=== PATIENT | female | born 1940 | race Caucasian/White ===

== ENCOUNTER 2024-12-14 08:51 | Outpatient (REF) | payer MEDICARE, MEDICAID, SELFPAY ==
[2024-12-14 13:21] LABS: Hematocrit 31.2 % (37.0-47.0); Hemoglobin 10.7 g/dl (12.0-16.0); Imm Gran Abs Auto 0.00 X10*3/uL (0.00-0.03); Imm Gran Pct Auto 0.0 % (0.0-0.4); Lymphocytes Absolute Auto 1.9 X10*3/uL (1.2-4.9); Mean Corpuscular HGB Conc 34.3 g/dl (31.0-35.0); Mean Corpuscular Hemoglobin 34.0 pg (27.0-33.0); Mean Corpuscular Volume 99.0 fL (80.0-98.0); NRBC Abs Auto 0.000 X10*3/uL (0.0-0.012); NRBC Pct Auto 0.0 /100WBC (0.0-0.2); Red Blood Count 3.15 X10*6/uL (4.20-5.50); White Blood Count 4.4 X10*3/uL (4.8-10.8)
[2024-12-14 13:24] LABS: Platelet Count 80 X10*3/uL (160-400)
[2024-12-14 13:44] LABS: Alanine Aminotransferase 29 U/L (0-31); Albumin Level 2.6 g/dL (3.5-5.0); Alkaline Phosphatase 279 U/L (39-117); Anion Gap 9 (12-20); Aspartate Amino Transferase 71 U/L (5-31); Blood Urea Nitrogen 17 mg/dL (9-16); Calcium 9.2 mg/dL (8.4-10.2); Carbon Dioxide 27 mmol/L (22-29); Chloride 107 mmol/L (96-108); Cholesterol 97 mg/dL (<200); Estimated Glomerular Filt Rate > 60; HDL Cholesterol 37 mg/dL (>40); Magnesium 1.7 mg/dL (1.6-2.6); Potassium 4.3 mmol/L (3.3-5.1); Sodium 139 mmol/L (135-145); Total Protein 7.4 g/dL (6.5-8.0); Triglycerides 40 mg/dL (<150)
[2024-12-14 14:08] LABS: Folate 9.7 ng/mL (> or = 4.0); Vitamin B12 1940 pg/mL (200-900)
[2024-12-14 15:31] LABS: MANUAL DIFF FLAG NO
[2024-12-14 15:50] LABS: Free T4 (Free Thyroxine) 1.12 ng/dL (0.71-1.85)
[2024-12-15 08:37] LABS: HBS Num1 0.00 mIU/mL (0-7.99); HBsAGNum1 0.40 S/CO (0.00-0.99); HIV Num 1 0.07 S/CO (0.00-0.99); Hepatitis B Surface Antigen Negative (Negative); ~HepC Num1 0.47 S/CO (0.00-0.79); ~Hepatitis B Surface Antibody NONREACTIVE (Nonreactive); ~Hepatitis C Antibody Nonreactive (Nonreactive)
[2024-12-15 08:55] LABS: Syphilis Screen Nonreactive (Nonreactive)
[2024-12-18 17:34] LABS: VITAMIN D (1,25 OH) D3 15 pg/mL; Vit D (1,25-Dihydroxy) Total 15 pg/mL (18-72); Vitamin D (1,25 OH) D2 <8 pg/mL
== END 2024-12-14 08:52 | disposition home or self-care (01) ==
LOC: HO.HKASLDS 08:51
PROVIDERS: Visit Provider Student in an Organized Health Care Education/Training Program
DX: Z76.89 Persons encountering health services in other specified circumstances (principal); Z01.89 Encounter for other specified special examinations; Z13.9 Encounter for screening, unspecified; Z11.4 Encounter for screening for human immunodeficiency virus [HIV]; Z13.31 Encounter for screening for depression; Z13.220 Encounter for screening for lipoid disorders; Z71.9 Counseling, unspecified; F43.21 Adjustment disorder with depressed mood; I10 Essential (primary) hypertension; R26.9 Unspecified abnormalities of gait and mobility; R60.0 Localized edema; I87.2 Venous insufficiency (chronic) (peripheral); L60.2 Onychogryphosis; M79.604 Pain in right leg; M79.605 Pain in left leg; Z79.899 Other long term (current) drug therapy
CPT/HCPCS: 36415; 80053; 80061; 82607; 82652; 82746; 83036; 83735; 84439; 84443; 85025; 86706; 86780; 86803; 87340; 87389; 96127

== ENCOUNTER 2024-12-14 08:51 | Outpatient (AMB) | payer OTHER, MEDICAID, SELFPAY ==
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
[2024-12-14 09:13] VITALS: BP 152/72; PULSE 109; RESP 16; TEMP 36.3; O2SAT 97; BMI 24.7
--- OUTSIDE RECORDS SUMMARY | 2024-12-14 09:59 | XMS_ITS | Clinical Summary ---
Author Organization [facility] Address [address] [place] [address] Phone Care Team Providers Care Account Classification Clerk Name Role Phone Physician, Pcp Unknown Primary Care Provider Heidi vailable Allergies No known active allergies Encounters Date Type Department Care Team Description 11/05/2024 1:05 PM EDT - 11/05/2024 5:40 PM EDT Emergency [facility] Emergency [address] [place] [address] Maxwell Garcia MD Venous stasis dermatitis of both lower extremities (Primary Dx) Discharge Disposition: Home or Self Care from Last 3 Months Medical History Medical History Date Comments Hypertension Social History Tobacco Use Types Packs/Day Years Used Date Smoking Tobacco: Never Smokeless Tobacco: Never Tobacco Cessation:Counseling Given: Not Answered Comments Unknown Sex and Gender Information Value Date Recorded Sex Assigned at Not on file Legal Sex Female 12:44 PM EDT Gender Identity Not on file Sexual Orientation Not on file Obstetrics History Last Filed Vital Signs Vital Sign Reading Time Taken Comments Blood Pressure 147/69 11/05/2024 4:00 PM EDT Pulse 97 11/05/2024 4:00 PM EDT Temperature 36.7 C (98 F) 11/05/2024 12:55 PM EDT Respiratory Rate 17 11/05/2024 4:00 PM EDT Oxygen Saturation 97% 11/05/2024 4:00 PM EDT Inhaled Oxygen Concentration - - Weight 59.4 kg (131 lb) 11/05/2024 12:55 PM EDT Height 152.4 cm (5') 11/05/2024 12:55 PM EDT Body Mass Index 25.58 11/05/2024 12:55 PM EDT Plan of Treatment Health Maintenance Due Date Last Done Comments DTaP,Tdap,and Td Vaccines (1 - Tdap) 02/06/1959 Pneumococcal Vaccine: 50+ Ye ars (1 of 1 - PCV) 02/06/1990 Zoster Vaccines (1 of 2) 02/06/1990 RSV Immunization Adult Patie nts (1 - 1-dose 75+ series) 02/06/2015 Depression Screening 04/05/2024 Falls Risk Assessment 11/05/2024 Medicare Annual Wellness Visit 11/05/2024 Osteoporosis Screening (Bone Density Screening) 11/05/2024 Social Influencers of Health Screening 11/05/2024 COVID-19 Vaccine (1 - 2023-2 5 season) 2024 Influenza Vaccine (#1) 2024 HIB Vaccines Aged Out No longer eligi ble based on patient's age to complete this topic HPV Vaccines Aged Out No longer eligi ble based on patient's age to complete this topic Hepatitis A Vaccines Aged Out No long er eligible based on patient's age to complete this topic Hepatitis B Vaccines Aged Out No long er eligible based on patient's age to complete this topic IPV Vaccines Aged Out No longer eligi ble based on patient's age to complete this topic MMR Vaccines Aged Out No longer eligi ble based on patient's age to complete this topic Meningococcal ACWY Vaccine Aged Out N o longer eligible based on patient's age to complete this topic Meningococcal B Vaccine Aged Out No l onger eligible based on patient's age to complete this topic RSV Immunization Patients Un randi 20 months Aged Out No longer eligible b ased on patient's age to complete this topic Varicella Vaccines Aged Out No longer eligible based on patient's age to complete this topic Procedures Procedure Name Priority Date/Time Associated Diagnosis Comments ECG ANNOTATED 11/06/2024 LT BLUE - NA CITRATE Routine 11/05/2024 3:17 PM EDT EXTRA TUBES Routine 11/05/2024 3:17 PM EDT COMPREHENSIVE METABOLIC PANEL STAT 11/05/2024 3:17 PM EDT XR CHEST 1 VIEW STAT 11/05/2024 2:33 PM EDT CBC WITH AUTO DIFFERENTIAL STAT 11/05/2024 1:44 PM EDT ACTIVATED PARTIAL THROMBOPLASTIN TIME STAT 11/05/2024 1:44 PM EDT PROTHROMBIN TIME WITH INR STAT 11/05/2024 1:44 PM EDT CBC AND DIFFERENTIAL STAT 11/05/2024 1:44 PM EDT B-TYPE NATRIURETIC PEPTIDE STAT 11/05/2024 1:44 PM EDT ECG 12-LEAD STAT 11/05/2024 1:35 PM EDT from Last 3 Months Results * ECG-Annotated (11/06/2024) us Provider Onbase ECG ORDERABLES Final Result * Light blue tube (11/05/2024 3:17 PM EDT) [facility] Extra Tube Hold for add-ons. 11/05/2024 5:01 PM EDT [facility] Comment:Auto resulted. Blood Venous blood specimen / Unknown 11/05/2024 3:17 PM EDT 11/05/2024 3:19 PM EDT Maxwell Garcia MD LAB BLOOD ORDERABLES Final Resul t [facility] [address] [place] [address], [place] [phone] * (ABNORMAL) Comprehensive metabolic panel (11/05/2024 3:17 PM EDT) [facility] Sodium 140 133 - 145 mmol/L LAB CHEMISTRY METHOD 11/05/2024 4:34 PM EDT [facility] Potassium 4.8 3.5 - 5.5 mmol/L LAB CHEMISTRY METHOD 11/05/2024 4:34 PM EDT [facility] Chloride 110 96 - 110 mmol/L LAB CHEMISTRY METHOD 11/05/2024 4:34 PM [facility] CO2 28 21 - 32 mmol/L LAB CHEMISTRY METHOD 11/05/2024 4:34 PM [facility] Anion Gap 2(L) 3 - 11 LAB CHEMISTRY METHOD 11/05/2024 4:34 PM [facility] Glucose 105(H) 70 - 100 mg/dL LAB CHEMISTRY METHOD 11/05/2024 4:34 PM [facility] BUN 20 5 - 25 mg/dL LAB CHEMISTRY METHOD 11/05/2024 4:34 PM [facility] Creatinine 0.40(L) 0.50 - 1.10 mg/dL LAB CHEMISTRY METHOD 11/05/2024 4:34 PM [facility] eGFR 98 >=60 mL/min/1. 73m2 LAB CHEMISTRY METHOD 11/05/2024 4:34 PM [facility] Comment:Calculation based on the Chronic Kidney Disease Epidemiology Collaboration (CKD-EPI) equation refit without adjustment for race. BUN/Creatinine Ratio 50.0 LAB CHEMISTRY METHOD 11/05/2024 4:34 PM [facility] Calcium 9.7 8.5 - 10.5 mg/dL LAB CHEMISTRY METHOD 11/05/2024 4:34 PM [facility] AST (SGOT) 52(H) 10 - 42 unit/L LAB CHEMISTRY METHOD 11/05/2024 4:34 PM [facility] ALT (SGPT) 35 10 - 60 unit/L LAB CHEMISTRY METHOD 11/05/2024 4:34 PM [facility] Alkaline Phosphatase 250(H) 42 - 121 unit/L LAB CHEMISTRY METHOD 11/05/2024 4:34 PM [facility] Total Protein 6.7 6.0 - 8.0 g/dL LAB CHEMISTRY METHOD 11/05/2024 4:34 PM EDT [facility] Albumin 2.3(L) 3.2 - 5.0 g/dL LAB CHEMISTRY METHOD 11/05/2024 4:34 PM EDT [facility] Total Bilirubin 1.1 0.0 - 1.4 mg/dL LAB CHEMISTRY METHOD 11/05/2024 4:34 PM EDT [facility] Blood Venous blood specimen / Unknown Venipuncture / Unknown 11/05/2024 3:17 PM EDT 11/05/2024 3:19 PM EDT us Maxwell Garcia MD LAB BLOOD ORDERABLES Final Resul t [facility] [address] [place] [address], [place] [phone] * XR Chest 1 View (11/05/2024 2:33 PM EDT) Anatomical Region Laterality Modality Body Radiographic Annia ging 11/05/2024 3:19 PM EDT Impressions 11/05/2024 3:19 PM EDT FINDINGS/IMPRESSION: No pneumonia or pulmonary edema. No pleural effusion or pneumothorax. Cardiac silhouette is mildly enlarged. Degenerative changes seen throughout the bones. -------- FINAL REPORT -------- Dictated By: GLO MALIK Dictated Date: 11/05/2024 15:19 ET Assigned Physician: GLO MALIK Reviewed and Electronically Signed By: GLO MALIK Signed Date: 11/05/2024 15:19 ET Workstation ID: [id number] Transcribed By: Self Edit Transcribed Date: 11/05/2024 15:19 ET Narrative 11/05/2024 3:19 PM EDT XR CHEST 1 VIEW INDICATION: Swelling TECHNIQUE: XR CHEST 1 VIEW COMPARISON: No priors available. Procedure Note Glo Malik MD - 11/05/2024 XR CHEST 1 VIEW INDICATION: Swelling TECHNIQUE: XR CHEST 1 VIEW COMPARISON: No priors available. IMPRESSION: FINDINGS/IMPRESSION: No pneumonia or pulmonary edema. No pleural effusionor pneumothorax. Cardiac silhouette is mildly enlarged. Degenerativechanges seen throughout the bones. -------- FINAL REPORT -------- Dictated By: GLO MALIK Dictated Date: 11/05/2024 15:19 ET Assigned Physician: GLO MALIK Reviewed and Electronically Signed By: GLO MALIK Signed Date: 11/05/2024 15:19 ET Workstation ID: [id number] Transcribed By: Self Edit Transcribed Date: 11/05/2024 15:19 ET Maxwell Garcia MD IMG XR PROCEDURES Final Result * (ABNORMAL) CBC auto differential (11/05/2024 1:44 PM EDT) WBC 4.5(L) 4.8 - 10.8 K/mcL LAB HEMETOLOGY [facility] RBC 3.10(L) 3.80 - 4.80 M/mcL LAB HEMETOLOGY METHOD [facility]/05[facility]24 [facility] Hemoglobin 10.6(L) 11.5 - 16.0 g/dL LAB HEMETOLOGY METHOD 11/05/2024 3:02 PM [facility] Hematocrit 31.8(L) 35.0 - 47.0 % LAB HEMETOLOGY METHOD 11/05/2024 3:[facility] MCV 102.9(H) 79.0 - 98.0 FL LAB HEMETOLOGY METHOD 11/05/2024 3:[facility] MCH 34.3(H) 27.0 - 32.0 pcg LAB HEMETOLOGY METHOD 11/05/2024 3:02 PM [facility] MCHC 33.3 32.0 - 37.0 g/dL LAB HEMETOLOGY METHOD 11/05/2024 3:02 PM [facility] RDW 14.2 11.0 - 15.0 % LAB HEMETOLOGY METHOD 11/05/2024 3:02 PM [facility] Platelets 58(L) 130 - 400 K/mcL LAB HEMETOLOGY METHOD 11/05/2024 3:02 PM [facility] MPV 12.9(H) 7.0 - 11.0 FL LAB HEMETOLOGY METHOD 11/05/2024 3:02 PM [facility] NRBC 0.0 <1.0 % LAB HEMETOLOGY METHOD 11/05/2024 3:02 PM [facility] NRBC Absolute 0.00 <0.10 K/mcL LAB HEMETOLOGY METHOD 11/05/2024 3:02 PM [facility] Neutrophils Relative 39.9 % LAB HEMETOLOGY METHOD 11/05/2024 3:02 PM [facility] Lymphocytes Relative 39.0 % LAB HEMETOLOGY METHOD 11/05/2024 3:02 PM [facility] Monocytes Relative 16.0 % LAB HEMETOLOGY METHOD 11/05/2024 3:02 PM [facility] Eosinophils Relative 4.7 % LAB HEMETOLOGY METHOD 11/05/2024 3:02 PM [facility] Basophils Relative 0.2 % LAB HEMETOLOGY METHOD 11/05/2024 3:02 PM [facility] Immature Granulocytes Relative 0.2 % LAB HEMETOLOGY METHOD 11/05/2024 3:02 PM [facility] Neutrophils Absolute 1.80 1.50 - 7.00 K/mcL LAB HEMETOLOGY METHOD 11/05/2024 3:02 PM [facility] Lymphocytes Absolute 1.76 1.00 - 5.00 K/mcL LAB HEMETOLOGY METHOD 11/05/2024 3:02 PM [facility] Monocytes Absolute 0.72 0.20 - 1.00 K/mcL LAB HEMETOLOGY METHOD 11/05/2024 3:02 PM EDT [facility] Eosinophils Absolute 0.21 0.00 - 0.50 K/[facility] HEMETOLOGY METHOD 11/05/2024 3:02 PM EDT [facility] Basophils Absolute 0.01 0.00 - 0.20 K/[facility] HEMETOLOGY METHOD 11/05/2024 3:02 PM EDT [facility] Immature Granulocytes Absolute 0.01 0.00 - 0.03 K/[facility] HEMETOLOGY METHOD 11/05/2024 3:02 PM EDT [facility] Blood Venous blood specimen / Unknown Venipuncture / Unknown 11/05/2024 1:44 PM EDT 11/05/2024 2:17 PM EDT us Maxwell Garcia MD LAB BLOOD ORDERABLES Final Resul t Performing Organization Address City/[facility]/ZIP Co de Phone Number [facility] [address] [place] [address], [place] [phone] * APTT (11/05/2024 1:44 PM EDT) [facility] aPTT 33.7 24.1 - 39.3 sec LAB COAGULATION METHOD 11/05/2024 2:39 PM EDT [facility] Blood Venous blood specimen / Unknown Venipuncture / Unknown 11/05/2024 1:44 PM EDT 11/05/2024 2:17 PM EDT us Maxwell Garcia MD LAB BLOOD ORDERABLES Final Resul t [facility] [address] [place] [address], [place] [phone] * (ABNORMAL) Protime-INR (11/05/2024 1:44 PM EDT) [facility] Protime 16.0(H) 10.6 - 13.9 sec LAB COAGULATION METHOD 11/05/2024 2:39 PM EDT [facility] INR 1.3 LAB COAGULATION METHOD 11/05/2024 2:39 PM EDT [facility] Blood Venous blood specimen / Unknown Venipuncture / Unknown 11/05/2024 1:44 PM EDT 11/05/2024 2:17 PM EDT us Maxwell Garcia MD LAB BLOOD ORDERABLES Final Resul t Performing Organization Address [facility]/ZIP Co de Phone Number [facility] [address] [place] [address], [place] [phone] * B-type natriuretic peptide (11/05/2024 1:44 PM EDT) [facility] BNP 69 <=100 pcg/mL LAB CHEMISTRY METHOD 11/05/2024 2:54 PM EDT [facility] Blood Venous blood specimen / Unknown Venipuncture / Unknown 11/05/2024 1:44 PM EDT 11/05/2024 2:17 PM EDT us Maxwell Garcia MD LAB BLOOD ORDERABLES Final Resul t Performing Organization Address City/[facility]/ZIP Co de Phone Number [facility] [address] [place] [address], [place] [phone] * ECG 12 lead (11/05/2024 1:35 PM EDT) [facility] Ventricular Rate ECG 96 BPM GEMUSE Atrial Rate 96 BPM GEMUSE P-R Interval 240 ms GEMUSE QRS Duration 92 ms GEMUSE Q-T Interval 338 ms GEMUSE QTc 427 ms GEMUSE P Wave [place] 74 degrees GEMUSE R [place] -8 degrees GEMUSE T [place] 50 degrees GEMUSE ECG Interpretation Sinus rhythm with 1st degree A-V block Otherwise normal ECG No previous ECGs available Confirmed by LIBRA MAXWELL ([id number]) on 11/05/2024 9:49:49 PM GEMUSE 11/05/2024 1:35 PM EDT 11/05/2024 9:49 PM EDT us Maxwell Garcia MD ECG ORDERABLES Final Result GEMUSE from Last [address] [place] [address] MEDICA[place] - [place] [employer] MEDICARE Advance Directives Documents on File Type Date Recorded Patient Communication And Outreach Manager Expl anation Power of Electric Frying Pan Repairer 11/05/2024 2:05 PM HEALTH CARE PROXY Care Teams Account Classification Clerk Relationship Specialty Start Date End Date Physician, Pcp Unknown PCP - General 11/05/24
== END 2024-12-14 10:06 | disposition home or self-care (01) ==
PROVIDERS: PCP Student in an Organized Health Care Education/Training Program; Visit Provider Student in an Organized Health Care Education/Training Program
DX: Z13.31 Encounter for screening for depression (principal); I10 Essential (primary) hypertension; R26.9 Unspecified abnormalities of gait and mobility; R60.0 Localized edema; I87.2 Venous insufficiency (chronic) (peripheral); L60.2 Onychogryphosis; M79.604 Pain in right leg; M79.605 Pain in left leg

== ENCOUNTER 2024-12-21 08:20 | Outpatient (AMB) | payer MEDICARE, MEDICAID, SELFPAY ==
--- NOTE | 2024-12-21 08:24 | MHC.OFFVIS ---
Vital Signs 12/21/24 08:33 Height 5 ft Weight 126 lb BMI 24.6 Intake Visit Reasons: New Pt- Onychogryphosis Intake Note: jeniffer is an 84 year old female who presents today as a new patient for an evaluation of her bilateral Onychogryphosis. Patient reports no pain in her feet at this time. She notices her toe nails are thick and yellow and is interested in getting them trimmed. Allergies No Known Allergies Allergy (Verified 12/21/24 08:35) Medication List - Last Reconciled 12/21/24 by Rand Pedroza DPM [3 point cane As directed] furosemide 40 mg PO BID losartan 50 mg PO DAILY [portable toilet As directed] [rollator As directed] [shower bar As directed] [shower chair As directed] silver sulfadiazine 1% (Silvadene) 1 appl topical DAILY HPI Comments Details: The patient is an 84-year-old female with a past medical history as seen below presents today for thickened, elongated, and dystrophic toenails x10 and bilateral lower extremity edema with changes to the skin. Patient was accompanied by her son who provided Maori translation and the history. The edema has been recurrent for the past five years, initially managed in [place] with the assistance of an in-home nurse who applied ointment and compression bandages every other day. The condition improved with these interventions but worsened when the services stopped, particularly after relocating to [place]. Currently, the patient's son manages the edema by cleaning the affected area, applying body lotion, and wrapping it with an nick bandage and compression stockings. The patient has a scheduled appointment with a vascular specialist in February to address the underlying venous insufficiency contributing to the edema. The patient also has a history of hypertension and asthma, with recent episodes of shortness of breath and fatigue, particularly when performing minimal activities such as walking to the bathroom. She previously used a nebulizer for asthma management, which is currently unavailable, necessitating a new prescription (in communication with her PCP). Patient denies any other pedal concerns. She denies any current nausea, vomiting, fever, or chills. [facility] Medical History (Updated 12/21/24 @ 10:05 by Rand Pedroza DPM) Nail dystrophy Onychomycosis Venous stasis dermatitis of both lower extremities Hypertension Asthma Peripheral vascular disease Venous stasis Pain, lower extremity Family History (Updated 12/14/24 @ 08:57 by Mitali Burroughs MA) Father No problems noted. Mother No problems noted. Social History (Updated 12/14/24 @ 08:58 by Mitali Burroughs MA) Housing: Apartment Alcohol intake: current Alcohol intake frequency: does not drink Patient Tobacco Use Status: Never used Tobacco service: No Current occupational status: retired Cognitive needs: Yes (wheelchair ) Hearing needs: No Vision needs: No Review of Systems Const Details: - Cardiovascular: Reports peripheral edema B/L. - Respiratory: Reports shortness of breath and fatigue, denies cough and fever. - Musculoskeletal: Reports pre-hyperkeratotic lesions, thickened and elongated toenails - Derm: Reports venous stasis dermatitis. All systems reviewed & are unremarkable except as noted in HPI and below Physical Exam Vital Signs: BMI result Body Mass Index 24.6 Extrem Other: B/L LE Focused Physical Exam: Derm: Mild erythema and discoloration noted to the legs and foot with cobblestone texture appearance of the skin bilaterally. Toenails 1 through 10 noted to be elongated, dystrophic, and discolored with subungual debris. No open wounds or lesions noted. No drainage or purulence noted. 2 pre-hyperkeratotic lesions noted to the plantar aspect of the right foot in the area of the 2nd through 4th metatarsal heads. Vasc: DP pulses palpable and PT pulses nonpalpable. Capillary refill time less than 3 seconds. Temperature gradient warm to warm. Significant nonpitting edema noted bilaterally with induration. Pedal hair absent. Neuro: Protective sensations grossly intact. MSK: No pain on palpation to the lower extremities. Mild pain with lifting of the legs. Pes planus foot type. Range of motion of the ankle within normal limits. Range of motion of the forefoot within normal limits. Office Procedures AMB Debridement/Avulsion Podia Details: Debrided toenails X 10 using a nail Nipper. 10043-[id number] of Nail 6+ Procedure code (CPT) selection complete AMB Podiatry Dressing Details of Procedure: Applied Silvadene cream to bilateral lower extremities. Applied multilayer compression dressing to bilateral lower extremities. 06551 - Multi-layer compressive dressing Procedure code (CPT) selection complete Office Meds silver sulfadiazine 1 % topical cream Performing Provider: Rand Pedroza DPM Performing Location: [facility] [place] [facility] Administered by: Rand Pedroza DPM on 12/21/24 09:54 Dose Route Admin Location Dispensed Lot Number Expiration Date [facility] Nutritional Assistant 1 appl topical 25 g [id number] [facility] Results Reviewed Results Reviewed: Reviewed patient's previous visit with her PCP. Assessment & Plan Assessment & Plan (1) Pain, lower extremity: Code(s): M79.606 - Pain in leg, unspecified Category: Medical Qualifiers: Laterality: bilateral Qualified Code(s): M79.604 - Pain in right leg; M79.605 - Pain in left leg (2) Venous stasis: Code(s): I87.8 - Other specified disorders of veins Category: Medical (3) Peripheral vascular disease: Code(s): I73.9 - Peripheral vascular disease, unspecified Category: Medical (4) Asthma: Code(s): J45.909 - Unspecified asthma, uncomplicated Category: Medical (5) Hypertension: Code(s): I10 - Essential (primary) hypertension Category: Medical (6) Venous stasis dermatitis of both lower extremities: Code(s): I87.2 - Venous insufficiency (chronic) (peripheral) Category: Medical (7) Onychomycosis: Code(s): B35.1 - Tinea unguium Category: Medical (8) Nail dystrophy: Code(s): L60.3 - Nail dystrophy Category: Medical Plan Patient was informed and verbally consented to the use of an ambient scribe for clinic note documentation during this visit. Discussed diagnoses of peripheral edema, venous stasis dermatitis, and onychomycosis with the patient and her son. During the visit, I discussed the importance of managing peripheral edema through regular cleaning, application of Silvadene cream , and compression bandaging including compression stockings. I emphasized the need for the upcoming vascular consultation to address potential venous insufficiency. We also talked about the patient's asthma management, highlighting the necessity of obtaining a new nebulizer and medication per her PCP. I reassured the patient about monitoring her hyperkeratotic lesions and advised her to report any pain or changes. 1. Peripheral Edema - Prescribed patient with Silvadene cream. - Applied Silvadene cream and a multilayer compression to B/L lower extremities. - Continue current management with cleaning, application of Silvadene cream application, and compression bandaging. Continue to wear compression stockings. - Follow up with vascular specialist to evaluate and manage venous insufficiency. 2. Onychomycosis - Debrided toenails times 10 using a nail Nipper. Patient is to follow-up in 9 weeks for routine nail care and management of venous stasis dermatitis. Orders: Orders AMB Podiatry Dressing Today I73.9 - Peripheral vascular disease, unspecified, I87.2 - Venous insufficiency (chronic) (peripheral), I87.8 - Other specified disorders of veins, M79.604 - Pain in right leg, M79.605 - Pain in left leg AMB Silvadene Topical Application Today I73.9 - Peripheral vascular disease, unspecified, I87.2 - Venous insufficiency (chronic) (peripheral), I87.8 - Other specified disorders of veins AMB Debridement/Avulsion Podiatry Today B35.1 - Tinea unguium, I73.9 - Peripheral vascular disease, unspecified, I87.8 - Other specified disorders of veins, L60.3 - Nail dystrophy Medications: New silver sulfadiazine 1% (Silvadene) apply a 1.5 mm thickness 1 appl topical DAILY 25 grams 2RF Lower extremity Vasculitis/ venous stasis I73.9 - Peripheral vascular disease, unspecified, I87.8 - Other specified disorders of veins, M79.604 - Pain in right leg, M79.605 - Pain in left leg Coding Level of Care Code New Pt Level 4 (94559) Diagnoses Pain in both lower extremities M79.604; M79.605 Laterality: bilateral Venous stasis I87.8 Peripheral vascular disease I73.9 Asthma J45.909 Hypertension I10 Venous stasis dermatitis of both lower extremities I87.2 Onychomycosis B35.1 Nail dystrophy L60.3 CPT Codes Skin Debridement - CPT: 40361-Dvgzcxoudfy of Nail 6+ ([id number]) Podiatry Dressing - CPT: 69313 - Multi-layer compressive dressing ([id number]) Time Spent (min) 60
[2024-12-21 08:33] VITALS: BMI 24.6
--- OUTSIDE RECORDS SUMMARY | 2024-12-21 09:20 | XMS_ITS | Clinical Summary ---
Author Organization [facility] Address [address] [place] [address] Phone Care Team Providers Care Radiology Special Procedure Tech Name Role Phone Physician, Pcp Unknown Primary Care Provider Heidi vailable Allergies No known active allergies Encounters Date Type Department Care Team Description 11/05/2024 1:05 PM EDT - 11/05/2024 5:40 PM EDT Emergency [facility] Emergency [address] [place] [address] Maxwell Garcia MD Venous stasis [...] Light blue tube (11/05/2024 3:17 PM EDT) [facility] Extra Tube Hold for add-ons. 11/05/2024 5:01 PM EDT [facility] Comment:Auto resulted. Blood Venous blood specimen / Unknown 11/05/2024 3:17 PM EDT 11/05/2024 3:19 PM EDT Maxwell Garcia MD LAB BLOOD ORDERABLES Final Resul t [facility] [address] [place] [address], [place] [phone] * (ABNORMAL) Comprehensive metabolic panel (11/05/2024 3:17 PM EDT) [facility] Sodium 140 133 - 145 mmol/L LAB CHEMISTRY METHOD 11/05/2024 4:34 PM EDT [facility] Potassium 4.8 3.5 - 5.5 mmol/L LAB CHEMISTRY METHOD 11/05/2024 4:34 PM EDT [facility] Chloride 110 96 - 110 mmol/L LAB CHEMISTRY METHOD 11/05/2024 4:34 PM [facility] CO2 28 21 - 32 mmol/L LAB CHEMISTRY METHOD 11/05/2024 4:34 PM [facility] Anion Gap 2(L) 3 - 11 LAB CHEMISTRY METHOD 11/05/2024 4:34 PM [facility] Glucose 105(H) 70 - 100 mg/dL LAB CHEMISTRY METHOD 11/05/2024 4:34 PM [facility] BUN 20 5 - 25 mg/dL LAB CHEMISTRY METHOD 11/05/2024 4:34 PM [facility] Creatinine 0.40(L) 0.50 - 1.10 mg/dL LAB CHEMISTRY METHOD 11/05/2024 4:34 PM [facility] eGFR 98 >=60 mL/min/1. 73m2 LAB CHEMISTRY METHOD 11/05/2024 4:34 PM [facility] Comment:Calculation based on the Chronic Kidney Disease Epidemiology Collaboration (CKD-EPI) equation refit without adjustment for race. BUN/Creatinine Ratio 50.0 LAB CHEMISTRY METHOD 11/05/2024 4:34 PM [facility] Calcium 9.7 8.5 - 10.5 mg/dL LAB CHEMISTRY METHOD 11/05/2024 4:34 PM [facility] AST (SGOT) 52(H) 10 - 42 unit/L LAB CHEMISTRY METHOD 11/05/2024 4:34 PM [facility] ALT (SGPT) 35 10 - 60 unit/L LAB CHEMISTRY METHOD 11/05/2024 4:34 PM [facility] Alkaline Phosphatase 250(H) 42 - 121 unit/L LAB CHEMISTRY METHOD 11/05/2024 4:34 PM [facility] Total Protein 6.7 6.0 - 8.0 g/dL LAB CHEMISTRY METHOD 11/05/2024 4:34 PM EDT [facility] Albumin 2.3(L) 3.2 - 5.0 g/dL LAB CHEMISTRY METHOD 11/05/2024 4:34 PM EDT [facility] Total Bilirubin 1.1 0.0 - 1.4 mg/dL LAB CHEMISTRY METHOD 11/05/2024 4:34 PM EDT [facility] Blood Venous blood specimen / Unknown Venipuncture / Unknown 11/05/2024 3:17 PM EDT 11/05/2024 3:19 PM EDT us Maxwell Garcia MD LAB BLOOD ORDERABLES Final Resul t [facility] [address] [place] [address], [place] [phone] * XR Chest 1 View (11/05/2024 2:33 [...] Signed Date: 11/05/2024 15:19 ET Workstation ID: [id number] Transcribed By: Self Edit Transcribed Date: 11/05/2024 [...] Signed Date: 11/05/2024 15:19 ET Workstation ID: [id number] Transcribed By: Self Edit Transcribed Date: 11/05/2024 15:19 ET Maxwell Garcia MD IMG XR PROCEDURES Final Result * (ABNORMAL) CBC auto differential (11/05/2024 1:44 PM EDT) WBC 4.5(L) 4.8 - 10.8 K/mcL LAB HEMETOLOGY METHOD [facility] RBC 3.10(L) 3.80 - 4.80 M/mcL LAB HEMETOLOGY METHOD 11/05[facility]24 [facility] Hemoglobin 10.6(L) 11.5 - 16.0 g/dL LAB HEMETOLOGY METHOD 11/05/2024 3:02 PM [facility] Hematocrit 31.8(L) 35.0 - 47.0 % LAB HEMETOLOGY METHOD 11/05/2024 3:[facility] MCV 102.9(H) 79.0 - 98.0 FL LAB HEMETOLOGY METHOD 11/05/2024 3:[facility] MCH 34.3(H) 27.0 - 32.0 pcg LAB HEMETOLOGY METHOD 11/05/2024 3:02 PM [facility] MCHC 33.3 32.0 - 37.0 g/dL LAB HEMETOLOGY METHOD 11/05/2024 3:02 PM [facility] RDW 14.2 11.0 - 15.0 % LAB HEMETOLOGY METHOD 11/05/2024 3:02 PM [facility] Platelets 58(L) 130 - 400 K/mcL LAB HEMETOLOGY METHOD 11/05/2024 3:02 PM [facility] MPV 12.9(H) 7.0 - 11.0 FL LAB HEMETOLOGY METHOD 11/05/2024 3:02 PM [facility] NRBC 0.0 <1.0 % LAB HEMETOLOGY METHOD 11/05/2024 3:02 PM [facility] NRBC Absolute 0.00 <0.10 K/mcL LAB HEMETOLOGY METHOD 11/05/2024 3:02 PM [facility] Neutrophils Relative 39.9 % LAB HEMETOLOGY METHOD 11/05/2024 3:02 PM [facility] Lymphocytes Relative 39.0 % LAB HEMETOLOGY METHOD 11/05/2024 3:02 PM [facility] Monocytes Relative 16.0 % LAB HEMETOLOGY METHOD 11/05/2024 3:02 PM [facility] Eosinophils Relative 4.7 % LAB HEMETOLOGY METHOD 11/05/2024 3:02 PM [facility] Basophils Relative 0.2 % LAB HEMETOLOGY METHOD 11/05/2024 3:02 PM [facility] Immature Granulocytes Relative 0.2 % LAB HEMETOLOGY METHOD 11/05/2024 3:02 PM [facility] Neutrophils Absolute 1.80 1.50 - 7.00 K/mcL LAB HEMETOLOGY METHOD 11/05/2024 3:02 PM [facility] Lymphocytes Absolute 1.76 1.00 - 5.00 K/mcL LAB HEMETOLOGY METHOD 11/05/2024 3:02 PM [facility] Monocytes Absolute 0.72 0.20 - 1.00 K/mcL LAB HEMETOLOGY METHOD 11/05/2024 3:02 PM EDT [facility] Eosinophils Absolute 0.21 0.00 - 0.50 K/[facility] HEMETOLOGY METHOD 11/05/2024 3:02 PM EDT [facility] Basophils Absolute 0.01 0.00 - 0.20 K/[facility] HEMETOLOGY METHOD 11/05/2024 3:02 PM EDT [facility] Immature Granulocytes Absolute 0.01 0.00 - 0.03 K/[facility] HEMETOLOGY METHOD 11/05/2024 3:02 PM EDT [facility] Blood Venous blood specimen / Unknown Venipuncture / Unknown 11/05/2024 1:44 PM EDT 11/05/2024 2:17 PM EDT us Maxwell Garcia MD LAB BLOOD ORDERABLES Final Resul t Performing Organization Address City/[facility]/ZIP Co de Phone Number [facility] [address] [place] [address], [place] [phone] * APTT (11/05/2024 1:44 PM EDT) [facility] aPTT 33.7 24.1 - 39.3 sec LAB COAGULATION METHOD 11/05/2024 2:39 PM EDT [facility] Blood Venous blood specimen / Unknown Venipuncture / Unknown 11/05/2024 1:44 PM EDT 11/05/2024 2:17 PM EDT us Maxwell Garcia MD LAB BLOOD ORDERABLES Final Resul t [facility] [address] [place] [address], [place] [phone] * (ABNORMAL) Protime-INR (11/05/2024 1:44 PM EDT) [facility] Protime 16.0(H) 10.6 - 13.9 sec LAB COAGULATION METHOD 11/05/2024 2:39 PM EDT [facility] INR 1.3 LAB COAGULATION METHOD 11/05/2024 2:39 PM EDT [facility] Blood Venous blood specimen / Unknown Venipuncture / Unknown 11/05/2024 1:44 PM EDT 11/05/2024 2:17 PM EDT us Maxwell Garcia MD LAB BLOOD ORDERABLES Final Resul t Performing Organization Address [facility]/ZIP Co de Phone Number [facility] [address] [place] [address], [place] [phone] * B-type natriuretic peptide (11/05/2024 1:44 PM EDT) [facility] BNP 69 <=100 pcg/mL LAB CHEMISTRY METHOD 11/05/2024 2:54 PM EDT [facility] Blood Venous blood specimen / Unknown Venipuncture / Unknown 11/05/2024 1:44 PM EDT 11/05/2024 2:17 PM EDT us Maxwell Garcia MD LAB BLOOD ORDERABLES Final Resul t Performing Organization Address City/[facility]/ZIP Co de Phone Number [facility] [address] [place] [address], [place] [phone] * ECG 12 lead (11/05/2024 1:35 PM EDT) [facility] Ventricular Rate ECG 96 BPM GEMUSE Atrial Rate 96 BPM GEMUSE P-R Interval 240 ms GEMUSE QRS Duration 92 ms GEMUSE Q-T Interval 338 ms GEMUSE QTc 427 ms GEMUSE P Wave [place] 74 degrees GEMUSE R [place] -8 degrees GEMUSE T [place] 50 degrees GEMUSE ECG Interpretation Sinus rhythm with 1st degree A-V block Otherwise normal ECG No previous ECGs available Confirmed by LIBRA MAXWELL ([id number]) on 11/05/2024 9:49:49 PM GEMUSE 11/05/2024 1:35 PM EDT 11/05/2024 9:49 PM EDT us Maxwell Garcia MD ECG ORDERABLES Final Result GEMUSE from Last [address] [place] [address] MEDICAID - [place] [employer] MEDICARE Advance Directives Documents on File Type Date Recorded Patient Head Of Stock Expl anation Power of Medication Care Manager 11/05/2024 2:05 PM HEALTH CARE PROXY Care Teams Radiology Special Procedure Tech Relationship Specialty Start Date End Date Physician, Pcp Unknown PCP - General 11/05/24
== END 2024-12-21 09:16 | disposition home or self-care (01) ==
LOC: HO.HPODS 08:21
PROVIDERS: PCP Student in an Organized Health Care Education/Training Program; Visit Provider Student in an Organized Health Care Education/Training Program
DX: M79.604 Pain in right leg (principal); M79.605 Pain in left leg; I87.8 Other specified disorders of veins; I73.9 Peripheral vascular disease, unspecified; J45.909 Unspecified asthma, uncomplicated; I10 Essential (primary) hypertension; I87.2 Venous insufficiency (chronic) (peripheral); B35.1 Tinea unguium; L60.3 Nail dystrophy
CPT/HCPCS: 11721; 29581; 99204

== ENCOUNTER → 2024-12-21 08:20 | Outpatient (BNVA) | payer MEDICARE, MEDICAID, SELFPAY | PROVIDERS: PCP Student in an Organized Health Care Education/Training Program; Visit Provider Student in an Organized Health Care Education/Training Program | DX: M79.604 Pain in right leg (principal); M79.605 Pain in left leg; I87.8 Other specified disorders of veins; I73.9 Peripheral vascular disease, unspecified; J45.909 Unspecified asthma, uncomplicated; I10 Essential (primary) hypertension; I87.2 Venous insufficiency (chronic) (peripheral); B35.1 Tinea unguium; L60.3 Nail dystrophy | CPT/HCPCS: 11721; 29581; 99202 ==

== ENCOUNTER 2024-12-28 08:18 | Outpatient (AMB) | payer OTHER, MEDICAID, SELFPAY ==
--- NOTE | 2024-12-28 08:21 | A.OFFPC_ITS ---
Vital Signs 12/28/24 08:25 Height 5 ft Weight 124 lb 8 oz BMI 24.3 BP 122/62 Blood Pressure Location Rt brachial Position Sitting Respiration 16 Pulse 97 Pulse Source Pulse Oximeter Temp 97.4 F Temp Source Oral Pulse Oximetry (%) 99 Oxygen Delivery Method Room Air Intake Visit Reasons: 2 week follow ip Intake Note: pt needs physical today for a care program to pay son for her. Pump Runner Required: No Accompanied by: Son Allergies No Known Allergies Allergy (Verified 12/28/24 08:21) Tobacco use date assessed: 12/14/24 Fall risk assessment: 1 Fall in past year Last assessed Fall Risk: 12/14/24 Dental Screening Dental Screen Date: 12/14/24 Did you have a dental visit in the last 12 months?: No Did you have a dental problem in the last 6 months where you did not have access to dental care?: No Was dental information given to patient?: No HPI HPI Comments History of Present Illness Details History of Present Illness The patient is an 84-year-old female presenting with management of asthma, peripheral edema, anemia, hemorrhoids, subclinical hyperthyroidism, and elevated liver enzymes. Asthma: - The patient has a history of asthma, b ut it was not initially disclosed during the first visit. - She does not currently use a nebulizer or inhaler, and her asthma appears to be controlled without these interventions. Peripheral Edema: - The patient has experienced peripheral edema, which has shown improvement with increased furosemide dosage. - There was a delay in medication acquis ition due to pharmacy issues, but the swelling has reduced since the last visit. Anemia: - The patient is experiencing anemia wit h low blood cell counts, including white and red blood cells. - She has been advised to take iron supp lements with vitamin C to improve absorption. Hemorrhoids: - The patient has had hemorrhoids for tw o and a half years, with occasional bl eeding noted. - A referral to a specialist for potenti al banding and removal has been discussed. Subclinical Hyperthyroidism: - The patient has a history of subclinic al hyperthyroidism, previously treated in [place]. - A referral to endocrinology is planned for further evaluation due to low thyroid levels. Elevated Liver Enzymes: - The patient has elevated liver enzymes and low albumin levels, likely due to poor nutritional intake. - A liver ultrasound and referral to a n utritionist have been recommended. Review of Systems - Respiratory: Denies dyspnea or use of inhalers/nebulizers - Gastrointestinal: Reports occasional b lood in stool, denies abdominal pain - General: Reports improved peripheral e jraad, denies fatigue 10-point ROS reviewed and negative excep t as noted in HPI Past Medical History - History of asthma - History of subclinical hyperthyroidism Health Maintenance - Referral to hematology for evaluation of anemia - Referral to gastroenterology for hemor rhoid management - Referral to endocrinology for subclini jaquan hyperthyroidism - Referral to nondestructive tester for dietary e valuation and potential Ensure supplementation Physical Exam General: Well-appearing, in no acute distress. Vital signs: Within normal limits. HEENT: Normocephalic, atraumatic. PERRLA, EOMI. Conjunctiva clear, sclera anicteric. Oropharynx clear, mucous membranes moist. TMs intact bilaterally. Neck: Supple, no lymphadenopathy, no thyromegaly, no JVD or carotid bruits. Cardiovascular: RRR, normal S1/S2, no murmurs, rubs, or gallops. Peripheral pulses 2+ and symmetric. No edema. Respiratory: Lungs clear to auscultation bilaterally, no wheezes, rales, or rhonchi. Normal effort. Abdomen: Soft, non-tender, non-distended. Normoactive bowel sounds. No hepatosplenomegaly, no masses. MSK: Full range of motion, lower extremity hardening of skin evidence of venous insufficiency . uses a wheelchair Skin: Warm, dry, intact. No rashes, lesions, or pallor. hardening of the skin of the lower extremities region Neuro: Alert and oriented x3. Cranial nerves II-XII intact. Strength 5/5 throughout. Sensation intact. Reflexes 2+ symmetric. Normal coordination and gait. Psych: Appropriate mood and affect. Normal judgment and insight. Plan 1. Asthma - The patient does not currently require a nebulizer or inhaler as her asthma is controlled. 2. Peripheral Edema - Continue current furosemide dosage as the edema has improved. 3. Anemia - Referral to hematology for further kinjal luation of low blood cell counts. - Initiate iron supplementation with vit gautam C to enhance absorption. 4. Hemorrhoids - Referral to gastroenterology for poten tial banding and removal of hemorrhoids. 5. Subclinical Hyperthyroidism - Referral to endocrinology for evaluati on and management of low thyroid levels. 6. Elevated Liver Enzymes - Order liver ultrasound to investigate elevated liver enzymes. - Referral to nondestructive tester for dietary a ssessment and potential Ensure supplementation. 7. pancytopenia Will refer to hematology for further workup Discussion Notes During the visit, we discussed the management of the patient's asthma, which is currently controlled without the need for inhalers or nebulizers. We addressed the peripheral edema, noting improvement with the current furosemide dosage. The patient was informed about the anemia and the need for hematology referral and iron supplementation. We also discussed the hemorrhoids and the plan for gastroenterology referral for potential banding. Subclinical hyperthyroidism was reviewed, and a referral to endocrinology was recommended. Elevated liver enzymes were noted, and a liver ultrasound was ordered along with a referral to a nondestructive tester for dietary evaluation. Patient was informed and verbally consented to the use of an ambient scribe for clinic note documentation during this visit. Patient Instructions - Continue taking furosemide as prescrib ed to manage swelling. - Take iron supplements with vitamin C d aily to improve absorption. - Attend all scheduled specialist appoin tments, including hematology, gastroenterology, and endocrinology. - Follow up with a nondestructive tester for diet ayesha evaluation and potential Ensure supplementation. [facility] Medical History (Updated 12/28/24 @ 09:02 by Yoan Ramirez MD) Mild intermittent asthma Hemorrhoid Nail dystrophy Onychomycosis Venous stasis dermatitis of both lower extremities Hypertension Asthma Peripheral vascular disease Venous stasis Pain, lower extremity Family History Father No problems noted. Mother No problems noted. Social History Housing: Apartment Alcohol intake: current Alcohol intake frequency: does not drink Patient Tobacco Use Status: Never used Tobacco service: No Current occupational status: retired Cognitive needs: Yes (wheelchair ) Hearing needs: No Vision needs: No Questionnaire PHQ-9 Over the last 2 weeks, how often have you been bothered by any of the following problems? 1. Little interest or pleasure in doing things: several days 2. Feeling down, depressed, or hopeless: several days 3. Trouble falling or staying asleep, or sleeping too much: more than half the days 4. Feeling tired or having little energy: nearly every day 5. Poor appetite or overeating: nearly every day 6. Feeling bad about yourself - or that you are a failure or have let yourself or your family down: not at all 7. Trouble concentrating on things, such as reading the newspaper or watching television: nearly every day 8. Moving or speaking so slowly that other people could have noticed. Or the opposite - being so fidgety or restless that you have been moving around a lot more than usual: nearly every day 9. Thoughts that you would be better off or of hurting yourself in some way: not at all Total score: 16 Depression Screening Interpretation: Positive Depression Screening Done: Yes 06495 - PHQ-9 Billing: Yes Source: Developed by Drs. Warren Bailey, Sherine Heller, Brandon Frias and colleagues, with an educational inge from [employer]. Thrive Questionnaire Date Thrive assessed: 12/14/24 I am a: Parent/Caregiver What is your living situation today?: I have a place to live, but I am worried about losing it in the future Within the past 12 months, did the food you bought not last and you didn't have the money to get more?: Often true Within the past 12 months, did you worry whether your food would run out before you got money to buy more?: Often true Do you have trouble paying for medicines?: No Do you have trouble getting transportation to medical appointments?: No Do you have trouble paying your heating and electricity bill?: No Do you have trouble taking care of your child, family member or friend?: No Do you have trouble with day-to-day activities such as bathing, preparing meals, shopping, managing finances, etc.?: Yes Are you currently unemployed and looking for a job?: No Are you interested in more education?: No THRIVE Score: 3 AUDIT C Alcohol Use Questionnaire (AUDIT-C) 1. How often do you have a drink containing alcohol?: Never 3. How often do you have six or more drinks on one occasion?: Never Total Score: 0 VU-7 AMB Questionnaire VU-7 Date VU - 7 assessed: 12/14/24 Feeling nervous, anxious, or on edge: 1 = Several days Not being able to stop or control worryin = Several days Worrying too much about different things: 1 = Several days Trouble relaxin = Several days Being so restless that it is hard to sit still: 1 = Several days Becoming easily annoyed or irritable: 1 = Several days Feeling afraid as if something awful might happen: 1 = Several days Total VU-7 score (0-4 normal; 5-9 mild; 10-14 moderate; 15-21 severe): 7 Source: Developed by Drs. Warren Bailey, Sherine Heller, Brandon Frias and colleagues, with an educational inge from [employer]. VU-7 Assessment Billing VU-7 Assessment Tool: VU-7 Assessment 82162 Physical exam (Primary Care) Tobacco/Smoking Status: Tobacco use Status Tobacco use date assessed 12/14/24 12/28/24 08:22 Patient Tobacco Use Status Never used Tobacco 12/28/24 08:22 PHQ-9: PHQ-9 Score PHQ-9: Total score 16 12/28/24 08:22 Depression Screening Interpretation: Positive Thrive Assessment: Date of Thrive Assessment Date Thrive assessed 12/14/24 12/28/24 08:22 Coding Level of Care Code Est Pt Level 3 (58355) Diagnoses Venous stasis dermatitis of both lower extremities I87.2 Peripheral vascular disease I73.9 Hypertension I10 Person consulting for explanation of examination or test findings Z71.2 Pancytopenia D61.818 Iron deficiency anemia D50.9 Low vitamin D level R79.89 Low serum albumin R77.0 Subclinical hyperthyroidism E05.90 Elevated liver enzymes R74.8 Low serum HDL R74.8 Mild intermittent asthma J45.20 Additional Codes VU-7 Assessment Billing - VU-7 Assessment Tool: VU-7 Assessment 44513 ([id number]) PHQ-9 - 09170 - PHQ-9 Billing: Yes ([id number]) Assessment & Plan Assessment & Plan (1) Venous stasis dermatitis of both lower extremities: Code(s): I87.2 - Venous insufficiency (chronic) (peripheral) Category: Medical (2) Peripheral vascular disease: Code(s): I73.9 - Peripheral vascular disease, unspecified Category: Medical (3) Hypertension: Code(s): I10 - Essential (primary) hypertension Category: Medical (4) Person consulting for explanation of examination or test findings: Code(s): Z71.2 - Person consulting for explanation of examination or test findings (5) Pancytopenia: Code(s): D61.818 - Other pancytopenia (6) Iron deficiency anemia: Code(s): D50.9 - Iron deficiency anemia, unspecified (7) Low vitamin D level: Code(s): R79.89 - Other specified abnormal findings of blood chemistry (8) Low serum albumin: Code(s): R77.0 - Abnormality of albumin (9) Subclinical hyperthyroidism: Code(s): E05.90 - Thyrotoxicosis, unspecified without thyrotoxic crisis or storm (10) Elevated liver enzymes: Code(s): R74.8 - Abnormal levels of other serum enzymes (11) Low serum HDL: Code(s): R74.8 - Abnormal levels of other serum enzymes (12) Mild intermittent asthma: Code(s): J45.20 - Mild intermittent asthma, uncomplicated Category: Medical Plan Orders: Orders XR DEXA axial skeleton Today Z13.820 - Encounter for screening for osteoporosis US abdomen limited Today R74.8 - Abnormal levels of other serum enzymes Referrals Gastroenterology Referral K64.9 - Unspecified hemorrhoids Hematology & Oncology Referral D61.818 - Other pancytopenia Nurse Navigator Referral R77.0 - Abnormality of albumin Endocrinology Referral E05.90 - Thyrotoxicosis, unspecified without thyrotoxic crisis or storm Medications: New cholecalciferol (vitamin D3) 1,250 mcg PO QWEEK 12 caps 0RF R79.89 - Other specified abnormal findings of blood chemistry ascorbic acid (vitamin C) 500 mg PO DAILY 30 tabs 0RF ferrous sulfate (iron) 325 mg PO DAILY 30 tabs 0RF
[2024-12-28 08:25] VITALS: BP 122/62; PULSE 97; RESP 16; TEMP 36.3; O2SAT 99; BMI 24.3
--- OUTSIDE RECORDS SUMMARY | 2024-12-28 08:45 | XMS_ITS | Clinical Summary ---
Author Organization [facility] Address [address] [place] [address] Phone Care Team Providers Care Deckhand Maintenance Name Role Phone Physician, Pcp Unknown Primary Care Provider Heidi vailable Allergies No known active allergies Encounters Date Type Department Care Team Description 11/05/2024 1:05 PM EDT - 11/05/2024 5:40 PM EDT Emergency [facility] Emergency [address] [place] [address] Maxwell Garcia MD Venous stasis [...] Light blue tube (11/05/2024 3:17 PM EDT) [facility] Extra Tube Hold for add-ons. 11/05/2024 5:01 PM EDT [facility] Comment:Auto resulted. Blood Venous blood specimen / Unknown 11/05/2024 3:17 PM EDT 11/05/2024 3:19 PM EDT Maxwell Garcia MD LAB BLOOD ORDERABLES Final Resul t [facility] [address] [place] [address], [place] [phone] * (ABNORMAL) Comprehensive metabolic panel (11/05/2024 3:17 PM EDT) [facility] Sodium 140 133 - 145 mmol/L LAB CHEMISTRY METHOD 11/05/2024 4:34 PM EDT [facility] Potassium 4.8 3.5 - 5.5 mmol/L LAB CHEMISTRY METHOD 11/05/2024 4:34 PM EDT [facility] Chloride 110 96 - 110 mmol/L LAB CHEMISTRY METHOD 11/05/2024 4:34 PM [facility] CO2 28 21 - 32 mmol/L LAB CHEMISTRY METHOD 11/05/2024 4:34 PM [facility] Anion Gap 2(L) 3 - 11 LAB CHEMISTRY METHOD 11/05/2024 4:34 PM [facility] Glucose 105(H) 70 - 100 mg/dL LAB CHEMISTRY METHOD 11/05/2024 4:34 PM [facility] BUN 20 5 - 25 mg/dL LAB CHEMISTRY METHOD 11/05/2024 4:34 PM [facility] Creatinine 0.40(L) 0.50 - 1.10 mg/dL LAB CHEMISTRY METHOD 11/05/2024 4:34 PM [facility] eGFR 98 >=60 mL/min/1. 73m2 LAB CHEMISTRY METHOD 11/05/2024 4:34 PM [facility] Comment:Calculation based on the Chronic Kidney Disease Epidemiology Collaboration (CKD-EPI) equation refit without adjustment for race. BUN/Creatinine Ratio 50.0 LAB CHEMISTRY METHOD 11/05/2024 4:34 PM [facility] Calcium 9.7 8.5 - 10.5 mg/dL LAB CHEMISTRY METHOD 11/05/2024 4:34 PM [facility] AST (SGOT) 52(H) 10 - 42 unit/L LAB CHEMISTRY METHOD 11/05/2024 4:34 PM [facility] ALT (SGPT) 35 10 - 60 unit/L LAB CHEMISTRY METHOD 11/05/2024 4:34 PM [facility] Alkaline Phosphatase 250(H) 42 - 121 unit/L LAB CHEMISTRY METHOD 11/05/2024 4:34 PM [facility] Total Protein 6.7 6.0 - 8.0 g/dL LAB CHEMISTRY METHOD 11/05/2024 4:34 PM EDT [facility] Albumin 2.3(L) 3.2 - 5.0 g/dL LAB CHEMISTRY METHOD 11/05/2024 4:34 PM EDT [facility] Total Bilirubin 1.1 0.0 - 1.4 mg/dL LAB CHEMISTRY METHOD 11/05/2024 4:34 PM EDT [facility] Blood Venous blood specimen / Unknown Venipuncture / Unknown 11/05/2024 3:17 PM EDT 11/05/2024 3:19 PM EDT us Maxwell Garcia MD LAB BLOOD ORDERABLES Final Resul t [facility] [address] [place] [address], [place] [phone] * XR Chest 1 View (11/05/2024 2:33 [...] Signed Date: 11/05/2024 15:19 ET Workstation ID: [id number] Transcribed By: Self Edit Transcribed Date: 11/05/2024 [...] Signed Date: 11/05/2024 15:19 ET Workstation ID: [id number] Transcribed By: Self Edit Transcribed Date: 11/05/2024 15:19 ET Maxwell Garcia MD IMG XR PROCEDURES Final Result * (ABNORMAL) CBC auto differential (11/05/2024 1:44 PM EDT) WBC 4.5(L) 4.8 - 10.8 K/mcL LAB HEMETOLOGY [facility] RBC 3.10(L) 3.80 - 4.80 M/mcL LAB HEMETOLOGY METHOD [facility]/05[facility]24 [facility] Hemoglobin 10.6(L) 11.5 - 16.0 g/dL LAB HEMETOLOGY METHOD 11/05/2024 3:02 PM [facility] Hematocrit 31.8(L) 35.0 - 47.0 % LAB HEMETOLOGY METHOD 11/05/2024 3:[facility] MCV 102.9(H) 79.0 - 98.0 FL LAB HEMETOLOGY METHOD 11/05/2024 3:[facility] MCH 34.3(H) 27.0 - 32.0 pcg LAB HEMETOLOGY METHOD 11/05/2024 3:02 PM [facility] MCHC 33.3 32.0 - 37.0 g/dL LAB HEMETOLOGY METHOD 11/05/2024 3:02 PM [facility] RDW 14.2 11.0 - 15.0 % LAB HEMETOLOGY METHOD 11/05/2024 3:02 PM [facility] Platelets 58(L) 130 - 400 K/mcL LAB HEMETOLOGY METHOD 11/05/2024 3:02 PM [facility] MPV 12.9(H) 7.0 - 11.0 FL LAB HEMETOLOGY METHOD 11/05/2024 3:02 PM [facility] NRBC 0.0 <1.0 % LAB HEMETOLOGY METHOD 11/05/2024 3:02 PM [facility] NRBC Absolute 0.00 <0.10 K/mcL LAB HEMETOLOGY METHOD 11/05/2024 3:02 PM [facility] Neutrophils Relative 39.9 % LAB HEMETOLOGY METHOD 11/05/2024 3:02 PM [facility] Lymphocytes Relative 39.0 % LAB HEMETOLOGY METHOD 11/05/2024 3:02 PM [facility] Monocytes Relative 16.0 % LAB HEMETOLOGY METHOD 11/05/2024 3:02 PM [facility] Eosinophils Relative 4.7 % LAB HEMETOLOGY METHOD 11/05/2024 3:02 PM [facility] Basophils Relative 0.2 % LAB HEMETOLOGY METHOD 11/05/2024 3:02 PM [facility] Immature Granulocytes Relative 0.2 % LAB HEMETOLOGY METHOD 11/05/2024 3:02 PM [facility] Neutrophils Absolute 1.80 1.50 - 7.00 K/mcL LAB HEMETOLOGY METHOD 11/05/2024 3:02 PM [facility] Lymphocytes Absolute 1.76 1.00 - 5.00 K/mcL LAB HEMETOLOGY METHOD 11/05/2024 3:02 PM [facility] Monocytes Absolute 0.72 0.20 - 1.00 K/mcL LAB HEMETOLOGY METHOD 11/05/2024 3:02 PM EDT [facility] Eosinophils Absolute 0.21 0.00 - 0.50 K/[facility] HEMETOLOGY METHOD 11/05/2024 3:02 PM EDT [facility] Basophils Absolute 0.01 0.00 - 0.20 K/[facility] HEMETOLOGY METHOD 11/05/2024 3:02 PM EDT [facility] Immature Granulocytes Absolute 0.01 0.00 - 0.03 K/[facility] HEMETOLOGY METHOD 11/05/2024 3:02 PM EDT [facility] Blood Venous blood specimen / Unknown Venipuncture / Unknown 11/05/2024 1:44 PM EDT 11/05/2024 2:17 PM EDT us Maxwell Garcia MD LAB BLOOD ORDERABLES Final Resul t Performing Organization Address City/[facility] Hospital/ZIP Co de Phone Number [facility] [address] [place] [address], [place] [phone] * APTT (11/05/2024 1:44 PM EDT) [facility] aPTT 33.7 24.1 - 39.3 sec LAB COAGULATION METHOD 11/05/2024 2:39 PM EDT [facility] Blood Venous blood specimen / Unknown Venipuncture / Unknown 11/05/2024 1:44 PM EDT 11/05/2024 2:17 PM EDT us Maxwell Garcia MD LAB BLOOD ORDERABLES Final Resul t [facility] [address] [place] [address], [place] [phone] * (ABNORMAL) Protime-INR (11/05/2024 1:44 PM EDT) [facility] Protime 16.0(H) 10.6 - 13.9 sec LAB COAGULATION METHOD 11/05/2024 2:39 PM EDT [facility] INR 1.3 LAB COAGULATION METHOD 11/05/2024 2:39 PM EDT [facility] Blood Venous blood specimen / Unknown Venipuncture / Unknown 11/05/2024 1:44 PM EDT 11/05/2024 2:17 PM EDT us Maxwell Garcia MD LAB BLOOD ORDERABLES Final Resul t Performing Organization Address [facility]/ZIP Co de Phone Number [facility] [address] [place] [address], [place] [phone] * B-type natriuretic peptide (11/05/2024 1:44 PM EDT) [facility] BNP 69 <=100 pcg/mL LAB CHEMISTRY METHOD 11/05/2024 2:54 PM EDT [facility] Blood Venous blood specimen / Unknown Venipuncture / Unknown 11/05/2024 1:44 PM EDT 11/05/2024 2:17 PM EDT us Maxwell Garcia MD LAB BLOOD ORDERABLES Final Resul t Performing Organization Address City/[facility] Hospital/ZIP Co de Phone Number [facility] [address] [place] [address], [place] [phone] * ECG 12 lead (11/05/2024 1:35 PM EDT) [facility] Ventricular Rate ECG 96 BPM GEMUSE Atrial Rate 96 BPM GEMUSE P-R Interval 240 ms GEMUSE QRS Duration 92 ms GEMUSE Q-T Interval 338 ms GEMUSE QTc 427 ms GEMUSE P Wave [place] 74 degrees GEMUSE R [place] -8 degrees GEMUSE T [place] 50 degrees GEMUSE ECG Interpretation Sinus rhythm with 1st degree A-V block Otherwise normal ECG No previous ECGs available Confirmed by LIBRA MAXWELL ([id number]) on 11/05/2024 9:49:49 PM GEMUSE 11/05/2024 1:35 PM EDT 11/05/2024 9:49 PM EDT us Maxwell Garcia MD ECG ORDERABLES Final Result GEMUSE from Last [address] [place] [address] MEDICAID - [place] [employer] MEDICARE Advance Directives Documents on File Type Date Recorded 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
== END 2024-12-28 09:04 | disposition home or self-care (01) ==
PROVIDERS: Visit Provider Student in an Organized Health Care Education/Training Program
DX: I87.2 Venous insufficiency (chronic) (peripheral) (principal); D61.818 Other pancytopenia; I73.9 Peripheral vascular disease, unspecified; I10 Essential (primary) hypertension; D50.9 Iron deficiency anemia, unspecified; R79.89 Other specified abnormal findings of blood chemistry; R77.0 Abnormality of albumin; E05.90 Thyrotoxicosis, unspecified without thyrotoxic crisis or storm; R74.8 Abnormal levels of other serum enzymes; J45.20 Mild intermittent asthma, uncomplicated

== ENCOUNTER → 2024-12-28 08:18 | Outpatient (BNVA) | payer MEDICARE, MEDICAID, SELFPAY | PROVIDERS: Visit Provider Student in an Organized Health Care Education/Training Program | DX: D61.818 Other pancytopenia (principal); R77.0 Abnormality of albumin; E05.90 Thyrotoxicosis, unspecified without thyrotoxic crisis or storm; Z13.820 Encounter for screening for osteoporosis; R74.8 Abnormal levels of other serum enzymes; R79.89 Other specified abnormal findings of blood chemistry; K64.9 Unspecified hemorrhoids; I87.2 Venous insufficiency (chronic) (peripheral); I73.9 Peripheral vascular disease, unspecified; I10 Essential (primary) hypertension; D50.9 Iron deficiency anemia, unspecified; J45.20 Mild intermittent asthma, uncomplicated; Z13.31 Encounter for screening for depression | CPT/HCPCS: 96127; 99212 ==

== ENCOUNTER 2025-02-07 13:55 | Outpatient (AMB) | payer OTHER, SELFPAY ==
--- NOTE | 2025-02-07 13:58 | A.OFFPC_ITS ---
Vital Signs 3 02/07/25 14:21 BP 174/78 H Blood Pressure Location Lt brachial Position Sitting Pulse 101 H Pulse Source Pulse Oximeter Pulse Oximetry (%) 98 Oxygen Delivery Method Room Air Intake Visit Reasons: follow up/ leg swelling Accompanied by: Son Allergies No Known Allergies Allergy (Verified 02/07/25 14:23) Medication List - Last Reconciled 02/07/25 by Yoan Ramirez MD [3 point cane As directed] ascorbic acid (vitamin C) 500 mg PO DAILY cholecalciferol (vitamin D3) 1,250 mcg PO QWEEK ferrous sulfate (iron) 325 mg PO DAILY furosemide 40 mg PO BID losartan 50 mg PO DAILY [portable toilet As directed] [rollator As directed] [shower bar As directed] [shower chair As directed] silver sulfadiazine 1% (Silvadene) 1 appl topical DAILY Tobacco use date assessed: 02/07/25 Fall risk assessment: No Falls in past year Last assessed Fall Risk: 02/07/25 Dental Screening Dental Screen Date: 02/07/25 HPI HPI Comments 2 History of Present Illness0 Details History of Present Illness The patient is an 85-year-old female presenting with leg erythema. leg erythema: The patient has noticed worsening erythema on bilateral lower extremities left greater than right, which has become more pronounced recently. This condition is currently the most severe it has been. No specific incident is noted as an inciting event. The patient has expressed concern over the erythema, noting its progression and severity. started about a week ago the son endorses after finishing the cream that was prescribed by the mortgage loan underwriter' Past Medical History Health Maintenance [facility] Medical History Menopausal and female climacteric states Mild intermittent asthma Hemorrhoid Nail dystrophy Onychomycosis Venous stasis dermatitis of both lower extremities Hypertension Asthma Peripheral vascular disease Venous stasis Pain, lower extremity Family History Father No problems noted. Mother No problems noted. Social History Housing: Apartment Alcohol intake: current Alcohol intake frequency: does not drink Patient Tobacco Use Status: Never used Tobacco service: No Current occupational status: retired Cognitive needs: Yes (wheelchair ) Hearing needs: No Vision needs: No Questionnaire PHQ-9 Over the last 2 weeks, how often have you been bothered by any of the following problems? 1. Little interest or pleasure in doing things: several days 2. Feeling down, depressed, or hopeless: several days 3. Trouble falling or staying asleep, or sleeping too much: more than half the days 4. Feeling tired or having little energy: nearly every day 5. Poor appetite or overeating: nearly every day 6. Feeling bad about yourself - or that you are a failure or have let yourself or your family down: not at all 7. Trouble concentrating on things, such as reading the newspaper or watching television: nearly every day 8. Moving or speaking so slowly that other people could have noticed. Or the opposite - being so fidgety or restless that you have been moving around a lot more than usual: nearly every day 9. Thoughts that you would be better off or of hurting yourself in some way: not at all Total score: 16 Depression Screening Interpretation: Positive Depression Screening Done: Yes 68596 - PHQ-9 Billing: Yes Source: Developed by Drs. Warren Bailey, Sherine Heller, Brandon Frias and colleagues, with an educational inge from [employer]. Thrive Questionnaire Date Thrive assessed: 12/14/24 I am a: Parent/Caregiver What is your living situation today?: I have a place to live, but I am worried about losing it in the future Within the past 12 months, did the food you bought not last and you didn't have the money to get more?: Often true Within the past 12 months, did you worry whether your food would run out before you got money to buy more?: Often true Do you have trouble paying for medicines?: No Do you have trouble getting transportation to medical appointments?: No Do you have trouble paying your heating and electricity bill?: No Do you have trouble taking care of your child, family member or friend?: No Do you have trouble with day-to-day activities such as bathing, preparing meals, shopping, managing finances, etc.?: Yes Are you currently unemployed and looking for a job?: No Are you interested in more education?: No THRIVE Score: 3 AUDIT C Alcohol Use Questionnaire (AUDIT-C) 1. How often do you have a drink containing alcohol?: Never 3. How often do you have six or more drinks on one occasion?: Never Total Score: 0 VU-7 AMB Questionnaire VU-7 Date VU - 7 assessed: 02/07/25 Feeling nervous, anxious, or on edge: 1 = Several days Not being able to stop or control worryin = Several days Worrying too much about different things: 1 = Several days Trouble relaxin = Several days Being so restless that it is hard to sit still: 1 = Several days Becoming easily annoyed or irritable: 1 = Several days Feeling afraid as if something awful might happen: 1 = Several days Total VU-7 score (0-4 normal; 5-9 mild; 10-14 moderate; 15-21 severe): 7 Source: Developed by Drs. Warren Bailey, Sherine Heller, Brandon Frias and colleagues, with an educational inge from [employer]. VU-7 Assessment Billing VU-7 Assessment Tool: VU-7 Assessment 19847 Review of Systems Narrative Review of Systems MSK- erythema oozing of clear [id number] ROS reviewed and negative except as noted in HPI Physical exam (Primary Care) Vital Signs: Last Vital Signs Pulse 101 H 02/07/25 14:21 BP 174/78 H 02/07/25 14:21 Pulse Ox 98 02/07/25 14:21 Oxygen Delivery Method Room Air 02/07/25 14:21 Tobacco/Smoking Status: Tobacco use Status Tobacco use date assessed 02/07/25 02/07/25 14:26 Patient Tobacco Use Status Never used Tobacco 02/07/25 14:01 PHQ-9: PHQ-9 Score PHQ-9: Total score 16 02/07/25 14:26 Depression Screening Interpretation: Positive Thrive Assessment: Date of Thrive Assessment Date Thrive assessed 12/14/24 02/07/25 14:01 Narrative Physical Exam General: Well-appearing, in no acute distress. in a wheelchair Vital signs: Within normal limits. HEENT: Normocephalic, atraumatic. PERRLA, EOMI. Conjunctiva clear, sclera anicteric. Oropharynx clear, mucous membranes moist. TMs intact bilaterally. Neck: Supple, no lymphadenopathy, no thyromegaly, no JVD or carotid bruits. Cardiovascular: RRR, normal S1/S2, no murmurs, rubs, or gallops. Peripheral pulses 2+ and symmetric. No edema. Respiratory: Lungs clear to auscultation bilaterally, no wheezes, rales, or rhonchi. Normal effort. Abdomen: Soft, non-tender, non-distended. Normoactive bowel sounds. No hepatosplenomegaly, no masses. MSK: Full range of motion, no joint swelling or deformity. Normal gait. Skin: see pictures the above are the left leg this is the right Neuro: Alert and oriented x3. Cranial nerves II-XII intact. Strength 5/5 throughout. Sensation intact. Reflexes 2+ symmetric. Normal coordination and gait. Psych: Appropriate mood and affect. Normal judgment and insight. Coding Level of Care Code Est Pt Level 3 (49329) Diagnoses Cellulitis of left lower extremity L03.116 Venous stasis I87.8 Peripheral vascular disease I73.9 Venous stasis dermatitis of both lower extremities I87.2 Pain in both lower extremities M79.604; M79.605 Laterality: bilateral Additional Codes VU-7 Assessment Billing - VU-7 Assessment Tool: VU-7 Assessment 23647 ([id number]) PHQ-9 - 67531 - PHQ-9 Billing: Yes ([id number]) Assessment & Plan Assessment & Plan (1) Cellulitis of left lower extremity: Code(s): L03.116 - Cellulitis of left lower limb (2) Venous stasis: Code(s): I87.8 - Other specified disorders of veins Category: Medical (3) Peripheral vascular disease: Code(s): I73.9 - Peripheral vascular disease, unspecified Category: Medical (4) Venous stasis dermatitis of both lower extremities: Code(s): I87.2 - Venous insufficiency (chronic) (peripheral) Category: Medical (5) Pain, lower extremity: Code(s): M79.606 - Pain in leg, unspecified Category: Medical Qualifiers: Laterality: bilateral Qualified Code(s): M79.604 - Pain in right leg; M79.605 - Pain in left leg Plan Consent Consent was obtained from the patient to photograph her leg to add to her medical record. The patient understood that images will be used solely for medical documentation purposes. Patient was informed and verbally consented to the use of an ambient scribe for clinic note documentation during this visit. Plan 1. cellulitis recommend transportation to the ED by EMS this is a 84-year-old patient in a wheelchair for consideration of IV antibiotic treatment Discussion Notes I discussed with the patient the apparent worsening of the erythema on her leg. To prevent any potential complications such as sepsis due to cellulitis we both agreed on the importance of having an immediate evaluation at the emergency department. I emphasized the necessity of treating the condition promptly, possibly with antibiotics, particularly given her age and the degree of severity observed. Patient Instructions - Please go to the emergency room for evaluation of your leg as soon as possible; a note will be provided for you. Medical Decision Making The patient presents with a leg condition characterized by worsening erythema. Given its severity and the patient's age, there is a concern for cellulitis, which requires prompt evaluation and management in the emergency setting. Immediate referral to the emergency department is necessary to ensure the condition is controlled and to prevent any potential systemic complications. This course of action is critical for rapid initiation of treatment, which might include intravenous antibiotics if an infection is confirmed. A note to facilitate her transition of care will be provided. Total time spent caring for the patient today was minutes. This includes time spent before the visit reviewing the chart, time spent documenting, and time spent reviewing laboratory results, diagnostic imaging, medications, performing a medically necessary evaluation, counseling on diagnoses, care coordination, ordering appropriate tests, ordering appropriate medications, review of tests performed by other providers, reporting test results with the patient, communication with other healthcare providers.
[2025-02-07 14:21] VITALS: BP 174/78; PULSE 101; O2SAT 98
--- OUTSIDE RECORDS SUMMARY | 2025-02-07 17:08 | XMS_ITS | Clinical Summary ---
Author Organization [facility] Address [address] [place] [phone] Phone Care Team Providers Care Specialized Developer Name Role Phone Physician, Pcp Unknown Primary Care Provider Heidi vailable Allergies No known active allergies Medical History Medical History Date Comments Hypertension [...] Influencers of Health Screening 11/05/2024 COVID-19 Vaccine (2023-2 5 season) 2024 Influenza Vaccine (#1) 2024 [...] on patient's age to complete this topic Insurance [address] [place] [address] [place]ICA[place] - [place] [employer] MEDICARE Advance Directives Documents on File Type Date Recorded 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
== END 2025-02-07 15:30 | disposition home or self-care (01) ==
LOC: HO.HMCFMS 13:56
PROVIDERS: PCP Student in an Organized Health Care Education/Training Program; Visit Provider Student in an Organized Health Care Education/Training Program
DX: L03.116 Cellulitis of left lower limb (principal); I87.8 Other specified disorders of veins; I73.9 Peripheral vascular disease, unspecified; I87.2 Venous insufficiency (chronic) (peripheral); M79.604 Pain in right leg; M79.605 Pain in left leg

== ENCOUNTER → 2025-02-07 13:55 | Outpatient (BNVA) | payer OTHER, SELFPAY | PROVIDERS: PCP Student in an Organized Health Care Education/Training Program; Visit Provider Student in an Organized Health Care Education/Training Program | DX: L03.116 Cellulitis of left lower limb (principal); I87.8 Other specified disorders of veins; I73.9 Peripheral vascular disease, unspecified; I87.2 Venous insufficiency (chronic) (peripheral); M79.604 Pain in right leg; M79.605 Pain in left leg; Z13.31 Encounter for screening for depression; Z13.39 Encounter for screening examination for other mental health and behavioral disorders | CPT/HCPCS: 96127; 99212 ==

== ENCOUNTER 2025-02-12 11:45 | Outpatient (RCR) | payer OTHER, SELFPAY | END 2025-03-30 16:16 | disposition home or self-care (01) | LOC: HO.WCC 11:45 | PROVIDERS: PCP Student in an Organized Health Care Education/Training Program; Visit Provider Surgery Surgical Oncology | DX: I87.332 Chronic venous hypertension (idiopathic) with ulcer and inflammation of left lower extremity (principal); L97.821 Non-pressure chronic ulcer of other part of left lower leg limited to breakdown of skin; I89.0 Lymphedema, not elsewhere classified; I87.321 Chronic venous hypertension (idiopathic) with inflammation of right lower extremity; G62.9 Polyneuropathy, unspecified | CPT/HCPCS: 29581; 99212 ==